=== PATIENT | male | born 1965 | race Caucasian/White ===

== ENCOUNTER 2019-01-30 14:36 | Emergency (ER) | payer BC ==
[~2019-01-30] VITALS: Ht 167.6 cm; Wt 95.3 kg
[2019-01-30 14:47] VITALS: BP 159/90
== END 2019-01-30 16:47 | disposition home or self-care (01) ==
LOC: ER 14:36
DX: S41.112A Laceration without foreign body of left upper arm, initial encounter (principal); Z88.8 Allergy status to other drugs, medicaments and biological substances; W54.0XXA Bitten by dog, initial encounter; Y93.89 Activity, other specified; Y92.89 Other specified places as the place of occurrence of the external cause; Y99.8 Other external cause status
CPT/HCPCS: 12002